=== PATIENT | male | born 1950 | race Caucasian/White ===

== ENCOUNTER 2024-08-12 10:15 | Emergency (ER) | payer MEDICARE ==
[~2024-08-12] VITALS: Ht 182.9 cm; Wt 98.9 kg
[~2024-08-12 10:15] MED LIST: AZAT50 PO; B-12500 MC2; CALCIUM CARBON500 M4 PO; CICLODAN6.6 ML; IBUP800 PO; LATANOPROST2.5 M3 BOTHEYES; PRED FORTE5 ML BOTHEYES; PROP10 PO; Preservision S1 EACH PO; TIMDOROPSO BOTHEYES; VITAMIN D31000 UNIT PO
[2024-08-12 10:46] LABS: BASOPHILS ABSOLUTE AUTO 0.03 K/mm3 (0.00-0.23); BASOPHILS PERCENT AUTO 1 % (0-2); EOSINOPHILS ABSOLUTE AUTO 0.18 K/mm3 (0.00-0.68); EOSINOPHILS PERCENT AUTO 3 % (0-6); Hematocrit 40.5 % (37.0-53.0); Hemoglobin 13.8 g/dL (13.5-17.5); IMMATURE GRAN ABSOLUTE AUTO 0.02 K/mm3 (0.00-0.10); IMMATURE GRAN PERCENT AUTO 0 % (0-1); LYMPHOCYTES ABSOLUTE AUTO 1.14 K/mm3 (0.84-5.20); LYMPHOCYTES PERCENT AUTO 21 % (21-46); MONOCYTES ABSOLUTE AUTO 0.34 K/mm3 (0.16-1.47); MONOCYTES PERCENT AUTO 6 % (4-13); Mean Corpuscular HGB 30.5 pg (26.0-34.0); Mean Corpuscular HGB Conc 34.1 g/dL (31.5-36.5); Mean Corpuscular Volume 89 fL (80-100); Mean Platelet Volume 8.9 fL (9.1-12.4); NEUTROPHILS ABSOLUTE AUTO 3.78 K/mm3 (1.96-9.15); NEUTROPHILS PERCENT AUTO 69 % (41-73); Platelet Count 207 K/mm3 (150-400); RDW Coefficient Variation 13.8 % (11.7-14.2); Red Blood Cell Count 4.53 M/mm3 (4.30-5.90); White Blood Cell Count 5.49 K/mm3 (4.00-11.30)
[2024-08-12 10:55] LABS: Albumin, Blood 3.9 g/dL (3.4-5.0); Albumin/Globulin Ratio 1.3 (0.8-1.8); Bilirubin, Total 0.3 mg/dL (0.1-1.0); Bun/Creatinine Ratio 23.9 (12.0-20.0); Calcium, Blood 8.7 mg/dL (8.5-10.1); Creatinine, Blood 0.88 mg/dL (0.60-1.20); Globulin, Blood 3.1 g/dL (2.2-4.0); Potassium, Blood 3.7 mmol/L (3.5-5.5)
[2024-08-12] MEDS ORDERED: Morphine Sulfate 4 MG/1 ML Injection IV ONE (11:55)
[2024-08-12] MEDS ORDERED: Ondansetron HCl 2 MG / ML 2ML Vial IV ONE (11:55)
[2024-08-12] MEDS ORDERED: IBUP800 PO (13:24)
[2024-08-12 13:30] VITALS: BP 147/85
== END 2024-08-12 13:39 | disposition home or self-care (01) ==
LOC: ER 10:15
PROVIDERS: Physician Assistant
DX: R07.9 Chest pain, unspecified (principal); Z79.899 Other long term (current) drug therapy; Z88.8 Allergy status to other drugs, medicaments and biological substances
CPT/HCPCS: 71046; 71260; 80053; 83690; 84484; 85025; J2270; J2405; Q9967

== ENCOUNTER → 2024-09-26 | Outpatient (CLI) | payer MEDICARE | LOC: LAB SHORT 15:23 | DX: M35.3 Polymyalgia rheumatica (principal) | CPT/HCPCS: 85651 ==